=== PATIENT | male | born 1985 | race Hispanic/Latino ===

== ENCOUNTER 2017-06-25 03:31 | Emergency (ER) | payer SELFPAY ==
[~2017-06-25] VITALS: Ht 172.7 cm; Wt 108.9 kg
[2017-06-25] MEDS ORDERED: IBUPROFEN 400 MG TAB PO ONE (04:15)
[2017-06-25] MEDS ORDERED: ACETAMINOPHEN 325 MG TAB PO ONE (04:15)
[2017-06-25] MEDS ORDERED: SODIUM CHLORIDE FLUSH 10 ML SYR IV ONE (04:45)
[2017-06-25] MEDS ORDERED: SODIUM CHLORIDE 0.9% 1000ML 1,000 ML IV SCH (04:45)
[2017-06-25] MEDS ORDERED: ACETAMINOPHEN/CODEINE ELIX 120-12 MG/5 ML UDC NG ONE (05:00)
[2017-06-25 05:59] VITALS: BP 130/59
[2017-06-26] MEDS ORDERED: SODIUM CHLORIDE 0.9% 1000ML 1,000 ML IV SCH (05:00)
== END 2017-06-25 05:58 | disposition home or self-care (01) ==
LOC: FSED 03:31
DX: R50.9 Fever, unspecified (principal); R05 Cough; J11.1 Influenza due to unidentified influenza virus with other respiratory manifestations
CPT/HCPCS: 99284; J7030